=== PATIENT | female | born 1970 | race Caucasian/White ===

== ENCOUNTER 2016-12-14 10:06 | Emergency (ER) | payer OTHER ==
[2016-12-14 10:13] VITALS: BMI 22.4
[2016-12-14] MEDS ORDERED: SODIUM CHLORIDE 1,000 ML IV STA (11:36)
[2016-12-14] MEDS ORDERED: METOCLOPRAMIDE HCL INJECTION 10 MG/2 ML VIAL IVPB ONE (11:36)
[2016-12-14] MEDS ORDERED: KETOROLAC TROMETHAMINE 30 MG/1 ML VIAL IVPUSH ONE (11:36)
[2016-12-14] MEDS ORDERED: METOCLOPRAMIDE HCL INJECTION 10 MG/2 ML VIAL ONE (11:46)
[2016-12-14 12:09] LABS: URINE APPEARANCE CLEAR; URINE BILIRUBIN NEGATIVE (NEGATIVE); URINE COLOR LTYELLOW; URINE GLUCOSE (UA) 1+ (NEGATIVE); URINE KETONE NEGATIVE (NEGATIVE); URINE LEUK ESTERASE NEGATIVE (NEGATIVE); URINE NITRITE NEGATIVE (NEGATIVE); URINE PROTEIN NEGATIVE (NEGATIVE); URINE UROBILINOGEN NEGATIVE E.U./dl (0.2-1.0)
[2016-12-14 12:10] LABS: URINE BLOOD 1+ (NEGATIVE)
[2016-12-14 12:11] LABS: URINE MUCUS RARE; URINE RBC 6 /hpf (0-3); URINE WBC 1 /hpf (3-5)
[2016-12-14 12:14] LABS: BASOPHIL 0.8 % (0-2.0); EOSINOPHIL 0.6 % (0-4.5); MCH 24.6 pg (25.7-33.7); MCHC 32.5 g/dl (32.0-36.0); MEAN CELL VOLUME 75.9 fl (80-96); MEAN PLT VOLUME 8.4 fl (7.5-11.1); NEUTROPHILS 67.6 % (42.8-82.8); PLATELET COUNT 264 K/MM3 (134-434); WHITE BLOOD COUNT 7.4 K/mm3 (4.0-10.0)
[2016-12-14] MEDS ORDERED: KETOROLAC TROMETHAMINE 30 MG/1 ML VIAL ONE (12:19)
--- NOTE | 2016-12-14 12:26 | PDOC ---
History of Present Illness - General Chief Complaint: Headache Stated Complaint: HEADACHES Time Seen by Provider: 12/14/16 10:32 History Source: Patient Exam Limitations: No Limitations - History of Present Illness Initial Comments: 12/14/16 12:33 46-year-old female presents to the ED with complaints of left retro-orbital throbbing pressure that radiates to her left occipital region for the past week unrelieved with Advil gelcaps. Patient states is followed by Dr. Victoria for migraines and hemangiomas. Patient denies any visual changes, dizziness, nausea , or weakness. Patient denies drug or alcohol use and denies neck pain. Timing/Duration: reports: 1 week, waxing and waning Severity: Yes: moderate Associated Symptoms: reports: other (headache). denies: vision changes Past History - Past Medical History Allergies/Adverse Reactions: Allergies Allergy/AdvReac Type Severity Reaction Status Date / Time No Known Allergies Allergy Verified 12/14/16 10:08 Home Medications: Ambulatory Orders NK [No Known Home Medication] 12/22/15 Asthma: Yes Other medical history: hemangioma of brain, migraines - Surgical History Abdominal Surgery: Yes Cholecystectomy: Yes - Reproductive History LMP Normal: Yes Is Patient Now?: No - Psycho/Social/Smoking Cessation Hx Anxiety: No Suicidal Ideation: No Smoking History: Current every day smoker Have you smoked in the past 12 months: Yes Number of Cigarettes Smoked Daily: 12 Information on smoking cessation initiated: Yes 'Breaking Loose' booklet given: 12/14/16 Hx Alcohol Use: No Drug/Substance Use Hx: No Substance Use Type: None, Marijuana Patient Lives Alone: No Lives with/in: spouse/SO Neuro Specific PMHX - Complaint Specific PMHX Migraine: Yes Review of Systems - Review of Systems Able to Perform ROS?: Yes Constitutional: No: Symptoms Reported HEENTM: No: Symptoms Reported Respiratory: No: Symptoms reported Cardiac (ROS): No: Symptoms Reported ABD/GI: No: Symptoms Reported : No: Symptoms Reported Musculoskeletal: No: Symptoms Reported Integumentary: No: Symptoms Reported Neurological: Yes: Headache. No: Numbness, Tingling, Weakness, Dizziness *Physical Exam - Vital Signs Last Vital Signs Temp Pulse Resp BP Pulse Ox 98.2 F 72 18 137/78 100 12/14/16 10:09 12/14/16 10:09 12/14/16 10:09 12/14/16 10:09 12/14/16 10:09 - Physical Exam General Appearance: Yes: Nourished, Appropriately Dressed. No: Apparent Distress HEENT: positive: EOMI, ANGELICA, TMs Normal. negative: Pale Conjunctivae Neck: positive: Normal Thyroid, Supple. negative: Tender, Decreased range of motion Respiratory/Chest: positive: Lungs Clear, Normal Breath Sounds. negative: Respiratory Distress, Accessory Muscle Use Cardiovascular: positive: Regular Rhythm, Regular Rate. negative: Murmur Integumentary: positive: Normal Color, Warm, Moist Neurologic: positive: Normal Mood/Affect, Motor Strength 5/5 (ambulatory) ED Treatment Course - LABORATORY CBC & Chemistry Diagram: 12/14/16 11:36 12/14/16 11:36 - RADIOLOGY Radiology Studies Ordered: Category Date Time Status HEAD CT WITHOUT CONTRAST [CT] Stat CT Scan 12/14/16 11:34 Ordered - Medications Given in the ED: ED Medications Discontinued Medications Generic Name Dose Route Start Last Admin Trade Name Elioq PRN Reason Stop Dose Admin Metoclopramide HCl 10 mg 12/14/16 11:36 12/14/16 11:47 Reglan Injection - IVPB 12/14/16 11:37 10 mg ONCE ONE Administration Medical Decision Making - Medical Decision Making 12/14/16 12:35 Pt with history of migraines and hemangioma was followed by Dr. Victoria now having throbbing pressure to her left retro-orbital and left occipital region which she states is normal location of previous migraines and denies any worsening symptoms. Patient ordered for labs including head CT, urine IV fluids, Reglan and Toradol. 12/14/16 13:21 Laboratory Tests 12/14/16 12/14/16 12/14/16 11:36 11:36 11:36 WBC 7.4 Hgb 10.4 L D Hct 32.1 L RDW 16.0 H D Neutrophils % 67.6 Sodium 140 Potassium 3.9 Chloride 106 Carbon Dioxide 26 Anion Gap 8 BUN 9 Creat Clearance w eGFR > 60 Random Glucose 89 Total Bilirubin 0.3 D AST 13 L D ALT 14 D Urine Glucose (UA) 1+ H Urine Blood 1+ H Ur Leukocyte Esterase Negative Urine WBC 1 Urine HCG, Qual Negative Head CT shows no evidence of acute intracranial hemorrhage, edema midline shift , mass effect, or skull fracture. Subtle increased attenuation is seen on the right side of the luciana, body of corpus callosum and the site of the cavernous angioma on MRI of the brain seen 2012. Patient states feeling much better with no complaints presently. Patient be discharged home to follow-up with Dr. Wild migraine specialist with Dr. Victoria's group. *DC/Admit/Observation/Transfer Diagnosis at time of Disposition: Migraine Qualifiers: Migraine type: other Status migrainosus presence: with status migrainosus Intractability: intractable Qualified Code(s): G43.811 - Other migraine, intractable, with status migrainosus - Discharge Dispostion Disposition: HOME Condition at time of disposition: Improved - Referrals Referrals: Sandrine Reyes MD [Staff Physician] - - Patient Instructions Printed Discharge Instructions: DI for Migraine Additional Instructions: Please avoid triggers that exacerbate your headaches. Please follow up with referred physician. return to ED if symptoms worsen
[2016-12-14 12:39] LABS: ALBUMIN 3.8 g/dl (3.4-5.0); ANION GAP 8 (8-16); BILIRUBIN,TOTAL 0.3 mg/dL (0.2-1.0); CALCIUM 9.1 mg/dL (8.5-10.1); CO2 26 mmol/L (21-32); CREATININE 0.7 mg/dL (0.55-1.02); GLUCOSE,RANDOM 89 mg/dL (74-106); SGOT/AST 13 U/L (15-37); SGPT/ALT 14 U/L (12-78); TOT PROT 7.3 g/dl (6.4-8.2)
[2016-12-14 12:40] LABS: ALK PHOS 71 U/L (45-117)
[2016-12-14 13:17] VITALS: BP 134/87; PULSE 61; TEMP 97.5
== END 2016-12-14 13:33 | disposition home or self-care (01) ==
LOC: JER 10:06
PROC: 3E0333Z Introduction of Anti-inflammatory into Peripheral Vein, Percutaneous Approach (ICD-10-PCS; principal; 2016-12-14)
PROC: 3E033GC Introduction of Other Therapeutic Substance into Peripheral Vein, Percutaneous Approach (ICD-10-PCS; 2016-12-14)
DX: G43.811 Other migraine, intractable, with status migrainosus (principal); F17.210 Nicotine dependence, cigarettes, uncomplicated
CPT/HCPCS: 36415; 70450-TC; 80053; 81003; 81015; 84703; 85025; 96374; 96375; 99284-25

== ENCOUNTER 2017-01-31 16:25 | Emergency (ER) | payer OTHER ==
[2017-01-31] MEDS ORDERED: DIPHTH,PERTUSS(ACELL),TET 0.5 ML DISP.SYRIN IM ONE (16:34)
[2017-01-31 16:35] VITALS: BP 149/80; PULSE 88; TEMP 98.5; BMI 21.4
--- NOTE | 2017-01-31 16:37 | PDOC ---
Rapid Medical Evaluation Chief Complaint: Laceration Time Seen by Provider: 01/31/17 16:32 Medical Evaluation: Allergies Allergy/AdvReac Type Severity Reaction Status Date / Time No Known Allergies Allergy Verified 01/31/17 16:33 01/31/17 16:35 RME Note: I have performed a brief, in-person evaluation of this patient . This patient presents with CC: Laceration left hand dorsum; Right hand dominant Pertinent PE findings are: 2.6 cm laceration I have ordered: Td Shot ordered The patient will proceed to ED for further evaluation.
--- NOTE | 2017-01-31 18:28 | PDOC ---
History of Present Illness - General Chief Complaint: Laceration Stated Complaint: LACERATION Time Seen by Provider: 01/31/17 16:32 History Source: Patient Exam Limitations: No Limitations - History of Present Illness Initial Comments: CHIEF COMPLAINT: 46 y/o afebrile female with laceration to left hand. HISTORY OF PRESENT ILLNESS: The patient states she put her hand down between her bed frame to get something and cut herself on a straight edge razor. She is not UTD on tetanus. she is right handed. She has no numbness/tingling. Vital signs on arrival are within normal limits. REVIEW OF SYSTEMS: GENERAL/CONSTITUTIONAL: No fever/chills. No weakness. No weight change. MUSCULOSKELETAL: No joint or muscle swelling or pain. No neck or back pain. SKIN: +laceration to left hand. NEUROLOGIC: No headache, vertigo, loss of consciousness, or loss of sensation. PHYSICAL EXAM: GENERAL: The patient is awake, alert, and fully oriented, in no acute distress. EXTREMITIES: Normal range of motion, no edema. NEUROLOGICAL: Normal speech, normal gait. CN II-XII grossly intact. PSYCH: Normal mood, normal affect. SKIN: 2.5cm vertical laceration on dorsum of left hand, just proximal to 3rd MCP joint. Full flexion/extension of all fingers and wrist of left hand. No streaking. Very well approximately margins. Past History - Past Medical History Allergies/Adverse Reactions: Allergies Allergy/AdvReac Type Severity Reaction Status Date / Time No Known Allergies Allergy Verified 01/31/17 16:33 Home Medications: Ambulatory Orders NK [No Known Home Medication] 12/22/15 Asthma: Yes - Surgical History Abdominal Surgery: Yes Cholecystectomy: Yes - Psycho/Social/Smoking Cessation Hx Anxiety: No Suicidal Ideation: No Smoking History: Current every day smoker Have you smoked in the past 12 months: Yes Number of Cigarettes Smoked Daily: 20 Information on smoking cessation initiated: No 'Breaking Loose' booklet given: 12/14/16 Hx Alcohol Use: No Drug/Substance Use Hx: No Substance Use Type: None, Marijuana *Physical Exam - Vital Signs Last Vital Signs Temp Pulse Resp BP Pulse Ox 98.5 F 88 18 149/80 99 01/31/17 16:33 01/31/17 16:33 01/31/17 16:33 01/31/17 16:33 03/20/17 16:33 Procedures - Laceration/Wound Repair Left Dorsal Hand Wound Length: to 2.5 cm Wound Explored: clean Wound's Depth, Shape: superficial, linear Irrigated w/ Saline: Yes Betadine Prep: Yes Wound Debrided: minimal Wound Repaired With: Sutures Suture Size/Type: 4:0 Number of Sutures: 3 Sterile Dressing Applied: Yes Medical Decision Making - Medical Decision Making A/P: 46 y/o female with laceration to left hand. Will give tetanus shot and do lac repair. Pt tolerated lac repair well after refusing lidocaine. Instructed her to keep wound clean and dry and return in 7-10 days for suture removal. The patient verbalizes understanding of all instructions, has no further questions and is awaiting discharge. *DC/Admit/Observation/Transfer Diagnosis at time of Disposition: Laceration of hand Qualifiers: Encounter type: initial encounter Foreign body presence: without foreign body Laterality: left Qualified Code(s): S61.412A - Laceration without foreign body of left hand, initial encounter - Discharge Dispostion Disposition: HOME Condition at time of disposition: Improved - Referrals Referrals: Concepción Baumann [Primary Care Provider] - - Patient Instructions Printed Discharge Instructions: DI for Laceration Repair Additional Instructions: Discharge Instructions: -Keep wound clean and dry -Return to the ER in 7-10 days for suture removal - Post Discharge Activity Work/School Note: Back to Work
== END 2017-01-31 18:44 | disposition home or self-care (01) ==
LOC: JERFT 16:25
PROC: 3E0234Z Introduction of Serum, Toxoid and Vaccine into Muscle, Percutaneous Approach (ICD-10-PCS; principal; 2017-01-31)
PROC: 0HQGXZZ Repair Left Hand Skin, External Approach (ICD-10-PCS; 2017-01-31)
DX: S61.412A Laceration without foreign body of left hand, initial encounter (principal); W26.8XXA Contact with other sharp object(s), not elsewhere classified, initial encounter; Y93.89 Activity, other specified; Y92.013 Bedroom of single-family (private) house as the place of occurrence of the external cause
CPT/HCPCS: 12001-25; 90471; 90715; 99281-25

== ENCOUNTER 2017-02-07 17:01 | Emergency (ER) | payer OTHER ==
[2017-02-07 17:13] VITALS: BP 119/79; PULSE 63; TEMP 98.3; BMI 21.4
--- NOTE | 2017-02-07 18:12 | PDOC ---
Suture Removal/Wound Check HPI - History of Present Illness Chief Complaint: Suture/Staple Removal (other) Stated Complaint: STITCHES REMOVAL Time Seen by Provider: 02/07/17 17:40 History Source: Yes: Patient Exam Limitations: Yes: No Limitations Treated at: [facility] ED - Previous ED Treatment Type of procedure performed on last visit: Yes: Laceration Repair Tetanus Immunization: Yes: Up to Date Antibiotics Prescribed: No Past History - Travel Traveled outside of the country in the last 30 days: No Close contact w/someone who was outside of country & ill: No - Past Medical History Allergies/Adverse Reactions: Allergies No Known Allergies Allergy (Verified 02/07/17 17:08) Home Medications: Ambulatory Orders NK [No Known Home Medication] 12/22/15 General: Yes: no pertinent history Surgical History: Yes: No Surgical History - Immunization History Tetanus Status: Unknown - Social History Smoking Status: Current every day smoker Number of Ciarettes Per Day: 20 Suture Removal/Wound Check PE - Physical Exam Laceration/Wound Check Symptoms: reports: None Current Severity Level: None Maximum Severity Level: None Pain Localization: None *Review of Systems - Review of Systems Able to Perform ROS?: Yes Constitutional: Yes: See HPI. No: Symptoms Reported, Fever, Malaise HEENTM: No: Symptoms Reported Integumentary: Yes: Symptoms Reported, See HPI, Other (3 sutures to dorsum of left hand at MCP third digit, not well approximated at joint ) All Other Systems: Reviewed and Negative Medical Decision Making - Medical Decision Making 02/07/17 18:10 Wound not well approximated thus far, recommend additional 5-7 days for suture repair and wound healing. Patient understands, will allow to start to dry, and provided with splint to avoid excessive movement at joint to allow better wound healing. *DC/Admit/Observation/Transfer Diagnosis at time of Disposition: Encounter for wound re-check - Discharge Dispostion Disposition: HOME Condition at time of disposition: Stable Admit: No - Patient Instructions Printed Discharge Instructions: Laceration Repair
== END 2017-02-07 18:14 | disposition home or self-care (01) ==
LOC: JER 17:01 → JERFT 17:01
DX: Z09 Encounter for follow-up examination after completed treatment for conditions other than malignant neoplasm (principal)
CPT/HCPCS: 99281-25

== ENCOUNTER 2017-02-11 16:46 | Emergency (ER) | payer OTHER ==
[2017-02-11 17:09] VITALS: BP 134/81; PULSE 77; TEMP 98.6; BMI 21.4
--- NOTE | 2017-02-11 17:33 | PDOC ---
Suture Removal/Wound Check HPI - History of Present Illness Chief Complaint: Suture/Staple Removal(Here) Stated Complaint: STITCHES REMOVAL Time Seen by Provider: 02/11/17 17:32 History Source: Yes: Patient Exam Limitations: Yes: No Limitations Date of Last ED visit: 02/07/17 - Onset of Previous Treatment Date of Occurence: 01/31/17 Past History - Past Medical History Allergies/Adverse Reactions: Allergies No Known Allergies Allergy (Verified 02/11/17 17:06) Home Medications: Ambulatory Orders NK [No Known Home Medication] 12/22/15 Surgical History: Yes: No Surgical History - Immunization History Tetanus Status: Unknown - Social History Smoking Status: Current every day smoker Number of Ciarettes Per Day: 20 Medical Decision Making - Medical Decision Making A/P: 46 y/o female here for suture removal. Margins well approximated. 3 sutures removed. 1 steri strip applied. Pt encouraged to continue to wear splint until completely healed. The patient verbalizes understanding of all instructions, has no further questions and is awaiting discharge. *DC/Admit/Observation/Transfer Diagnosis at time of Disposition: Visit for suture removal - Discharge Dispostion Disposition: HOME Condition at time of disposition: Good - Referrals Referrals: Concepción Baumann [Primary Care Provider] - - Patient Instructions Printed Discharge Instructions: DI for Suture Removal
== END 2017-02-11 17:43 | disposition home or self-care (01) ==
LOC: JERFT 16:46
DX: Z48.02 Encounter for removal of sutures (principal)
CPT/HCPCS: 99281-25

== ENCOUNTER 2017-07-21 14:26 | Emergency (ER) | payer OTHER ==
[2017-07-21 14:32] VITALS: BP 104/65; PULSE 77; TEMP 98.8; BMI 22.3
[2017-07-21] MEDS ORDERED: KETOROLAC TROMETHAMINE 60 MG/2 ML VIAL IM ONE (14:59)
[2017-07-21] MEDS ORDERED: diazePAM 5 MG TABLET PO ONE (14:59)
[2017-07-21] MEDS ORDERED: diazePAM 5 MG TABLET ONE (15:02)
[2017-07-21] MEDS ORDERED: KETOROLAC TROMETHAMINE 60 MG/2 ML VIAL ONE (15:02)
--- NOTE | 2017-07-21 15:48 | PDOC ---
History of Present Illness - General Chief Complaint: Pain, Acute Stated Complaint: NECK PAIN Time Seen by Provider: 07/21/17 14:38 History Source: Patient Exam Limitations: No Limitations - History of Present Illness Initial Comments: 07/21/17 15:48 Patient is a 47 y/o female with asthma presents emergency department for evaluation of left lateral neck pain. Patient aching up with the pain, denies any trauma. There is no neurosensory deficits. Patient reports that she uses pillow that is very uncomfortable, has been taking Advil with minimal resolve. Pain returns after medication wears off. Denies any headache, no visual disturbance, no other concern. Past Medical History: Asthma. Allergies: No known allergies Medications: None Family History: Non-contributory Review of Systems GENERAL/CONSTITUTIONAL: No fever or chills. No weakness. No weight change. HEAD, EYES, EARS, NOSE AND THROAT: No change in vision. No ear pain or discharge. No sore throat. CARDIOVASCULAR: No chest pain or shortness of breath. RESPIRATORY: No cough, wheezing, or hemoptysis. GASTROINTESTINAL: No nausea, vomiting, diarrhea or constipation. No rectal bleeding. GENITOURINARY: No dysuria, frequency, or change in urination. MUSCULOSKELETAL: No joint or muscle swelling or pain. No neck or back pain. SKIN : No rash or easy bruising. NEUROLOGIC: No headache, vertigo, loss of consciousness, or loss of sensation. HEMATOLOGIC/LYMPHATIC: No anemia, easy bleeding, or history of blood clots. ALLERGIC/IMMUNOLOGIC: No hives or skin allergy. No latex allergy. Physical Exam: GENERAL: The patient is awake, alert, and fully oriented, in no acute distress. EYES: Pupils equal, round and reactive to light, extraocular movements intact, sclera anicteric, conjunctiva clear. ENT: Ears normal, nares patent, oropharynx clear without exudates. Moist mucous membranes. No uvula deviation NECK: Left lateral neck spasm., supple without lymphadenopathy, JVD, or masses. LUNGS: Breath sounds equal, clear to auscultation bilaterally. No wheezes, and no crackles. HEART: Regular rate and rhythm, normal S1 and S2 without murmur, rub or gallop. ABDOMEN: Soft, nontender, normoactive bowel sounds. No guarding, no rebound. No masses. No bruising or abrasions MUSCULOSKELETAL: Normal range of motion, no edema. No clubbing or cyanosis. No cords, erythema, or tenderness. No CVA Tenderness with fist palpation. NEUROLOGICAL: Cranial nerves II through XII grossly intact. Normal speech, normal gait. SKIN: Warm, Dry, normal turgor, no rashes or lesions noted. 07/21/17 16:13 Past History - Past Medical History Allergies/Adverse Reactions: Allergies Allergy/AdvReac Type Severity Reaction Status Date / Time No Known Allergies Allergy Verified 07/21/17 14:30 Home Medications: Ambulatory Orders Diazepam [Valium] 5 mg PO Q6H #16 tablet MDD 4 07/21/17 Ibuprofen [Motrin -] 600 mg PO QID #28 tablet 07/21/17 Methylprednisolone [Medrol Dose Darrius] 4 mg PO ASDIR #21 tablet 07/21/17 Asthma: Yes Psychiatric Problems: Yes (DEPRESSION) - Surgical History Abdominal Surgery: Yes Cholecystectomy: Yes - Psycho/Social/Smoking Cessation Hx Anxiety: No Suicidal Ideation: No Smoking History: Current every day smoker Have you smoked in the past 12 months: Yes Number of Cigarettes Smoked Daily: 20 Information on smoking cessation initiated: No 'Breaking Loose' booklet given: 12/14/16 Hx Alcohol Use: No Drug/Substance Use Hx: No Substance Use Type: None, Marijuana *Physical Exam - Vital Signs Last Vital Signs Temp Pulse Resp BP Pulse Ox 98.8 F 77 19 104/65 99 07/21/17 14:30 07/21/17 14:30 07/21/17 14:30 07/21/17 14:30 07/21/17 14:30 ED Treatment Course - RADIOLOGY Radiology Studies Ordered: Category Date Time Status SPINE-CERVICAL [RAD] Stat Radiology 07/21/17 14:58 Completed - Medications Given in the ED: ED Medications Discontinued Medications Generic Name Dose Route Start Last Admin Trade Name Freq PRN Reason Stop Dose Admin Diazepam 5 mg 07/21/17 14:59 07/21/17 15:08 Valium - PO 07/21/17 15:00 5 mg ONCE ONE Administration Ketorolac Tromethamine 60 mg 07/21/17 14:59 07/21/17 15:07 Toradol Injection - IM 07/21/17 15:00 60 mg ONCE ONE Administration Medical Decision Making - Medical Decision Making 07/21/17 16:27 A/P : Patient with left lateral neck pain for one month. She states she woke up with the pain, denies any neurosensory deficits. Thinks that this may be getting the pain from an uncomfortable pillow. 1. Xray c spine, because of length pain has persisted. X-ray with cervical spondyosis. Or don't Valium given with good result DC patient home on Medrol Dosepak after completion of Medrol, Motrin for pain, Valium, follow-up with orthopedics if pain persists in one week *DC/Admit/Observation/Transfer Diagnosis at time of Disposition: Torticollis - Discharge Dispostion Disposition: HOME Condition at time of disposition: Good Admit: No - Prescriptions Prescriptions: Methylprednisolone [Medrol Dose Darrius] 4 mg PO ASDIR #21 tablet Ibuprofen [Motrin -] 600 mg PO QID #28 tablet Diazepam [Valium] 5 mg PO Q6H #16 tablet MDD 4 - Referrals Referrals: Killian Anguiano MD [Staff Physician] - - Patient Instructions Printed Discharge Instructions: DI for Torticollis
== END 2017-07-21 16:18 | disposition home or self-care (01) ==
LOC: JERFT 14:26
PROC: 3E0233Z Introduction of Anti-inflammatory into Muscle, Percutaneous Approach (ICD-10-PCS; principal; 2017-07-21)
DX: M43.6 Torticollis (principal); J45.909 Unspecified asthma, uncomplicated; F32.9 Major depressive disorder, single episode, unspecified; F17.210 Nicotine dependence, cigarettes, uncomplicated
CPT/HCPCS: 72050-TC; 99281-25

== ENCOUNTER 2017-12-21 17:51 | Emergency (ER) | payer OTHER ==
[2017-12-21 17:57] VITALS: BP 119/87; PULSE 98; TEMP 98.5; BMI 21.8
--- NOTE | 2017-12-21 17:57 | PDOC ---
Rapid Medical Evaluation Time Seen by Provider: 12/21/17 17:53 Medical Evaluation: Allergies Allergy/AdvReac Type Severity Reaction Status Date / Time No Known Allergies Allergy Verified 07/21/17 14:30 12/21/17 17:53 I have performed a brief in-person evaluation of this patient. The patient presents with a chief complaint of: R shoulder pain x "past few days ", 05/23, took advil at 4 pm, also "collar bone is sticking out and higher than left side." Pertinent physical exam findings: tenderness to R clavicle I have ordered the following: shoulder/clavicle x-ray, upreg The patient will proceed to the ED for further evaluation. Discharge Disposition - Diagnosis Shoulder pain - Referrals - Patient Instructions - Post Discharge Activity
[2017-12-21] MEDS ORDERED: KETOROLAC TROMETHAMINE 60 MG/2 ML VIAL IM ONE (20:42)
--- NOTE | 2017-12-21 20:42 | PDOC ---
History of Present Illness - General Chief Complaint: Pain, Acute Stated Complaint: SHOULDER PAIN Time Seen by Provider: 12/21/17 17:53 History Source: Patient Exam Limitations: No Limitations - History of Present Illness Initial Comments: 12/21/17 20:48 c/o chronic pain to right shulder x 3 months that is worsening and spreading into upper right arm. Denies trauma, exercise change, activity or injury,. Has not used treatments other than a Percocet x 1 for pain relief. Has not discussed with PMD . Works at [employer] with frequent heavy lifting and is right-hand dominant Occurred: reports: yesterday Severity: reports: mild, moderate Pain Location: reports: upper extremity (right clavicle and shoulder ) Modifying Factors: improves with: pain medication Past History - Travel Traveled outside of the country in the last 30 days: No Close contact w/someone who was outside of country & ill: No - Past Medical History Allergies/Adverse Reactions: Allergies Allergy/AdvReac Type Severity Reaction Status Date / Time No Known Allergies Allergy Verified 12/21/17 17:57 Home Medications: Ambulatory Orders Cyclobenzaprine HCl 10 mg PO Q8H PRN #14 tablet 12/21/17 Naproxen [Naprosyn -] 500 mg PO BID #20 tablet 12/21/17 Asthma: Yes COPD: No Psychiatric Problems: Yes (DEPRESSION) - Surgical History Abdominal Surgery: Yes Cholecystectomy: Yes - Suicide/Smoking/Psychosocial Hx Smoking History: Current every day smoker Have you smoked in the past 12 months: Yes Number of Cigarettes Smoked Daily: 20 Information on smoking cessation initiated: No 'Breaking Loose' booklet given: 12/14/16 Hx Alcohol Use: No Drug/Substance Use Hx: No Substance Use Type: None, Marijuana Trauma Specific PMHX - Complaint Specific PMHX Back Injury: No Neck Injury: No Review of Systems - Review of Systems Able to Perform ROS?: Yes Is the patient limited Bahraini proficient: Yes Constitutional: Yes: Symptoms Reported, See HPI. No: Fever, Malaise HEENTM: No: Symptoms Reported Respiratory: Yes: See HPI. No: Symptoms reported Musculoskeletal: Yes: Symptoms Reported, See HPI, Joint Pain, Joint Swelling ( right shoudler ) Integumentary: No: Symptoms Reported Neurological: Yes: See HPI. No: Symptoms reported All Other Systems: Reviewed and Negative *Physical Exam - Vital Signs Last Vital Signs Temp Pulse Resp BP Pulse Ox 98.5 F 98 H 18 119/87 98 12/21/17 17:54 12/21/17 17:54 12/21/17 17:54 12/21/17 17:54 12/21/17 17:54 - Physical Exam General Appearance: Yes: Nourished, Appropriately Dressed, Apparent Distress HEENT: positive: ANGELICA, Normal ENT Inspection, TMs Normal, Pharynx Normal Neck: positive: Supple. negative: Tender, Lymphadenopathy (R), Lymphadenopathy (L) Respiratory/Chest: positive: Lungs Clear, Normal Breath Sounds Musculoskeletal: positive: Normal Inspection, CVA Tenderness (R), Decreased Range of Motion (unable to abduct past 30 to right shoulder with reproduce tenderness with palpation along the lateral clavicle deltoid and upper humerus. Patient has strong flexion and extension to hand but flexion with bicep reproduces pain along upper aspect of arm. No crepitus or step-offs to clavicle or scapula, no neck tenderness, no spasm palpated but has very tense musculature to the upper trapezius and shoulder girdle.). negative: Vertebral Tenderness Extremity: positive: Normal Capillary Refill. negative: Normal Range of Motion , Tender Integumentary: positive: Normal Color Neurologic: positive: sales account representative II-XII NML intact, Fully Oriented, Alert, Normal Mood/ Affect, Normal Response, Motor Strength 5/5 ED Treatment Course - ADDITIONAL ORDERS Additional order review: Laboratory Results 12/21/17 18:43 Urine HCG, Qual Negative Progress Note - Progress Note Progress Note: Tendinitis right shoulder, will treat with NSAIDs and try muscle spasm relief. Encouraged to use ice packs, rest, and follow up with Orth O for further evaluation this week *DC/Admit/Observation/Transfer Diagnosis at time of Disposition: Shoulder pain Qualifiers: Chronicity: acute Laterality: left Qualified Code(s): M25.512 - Pain in left shoulder - Discharge Dispostion Disposition: HOME Condition at time of disposition: Stable Admit: No - Referrals Referrals: Killian Anguiano MD [Staff Physician] - - Patient Instructions Printed Discharge Instructions: DI for Shoulder Tendinopathy Additional Instructions: Rest, no heavy lifting or exercise until pain is resolved Hot soaks to neck and low back as often as possible/hot showers or Jacuzzis No massage or therapy until spasm is gone Continue Naprosyn 500 mg every 8 hours for the next 3 days then as needed for pain and swelling Cyclobenzaprine 1-10mg every 8 hours as needed for spasm If not significant improvement within 24 hours with medication and rest regime, followup with private physician for change in medications and /or therapy. - Post Discharge Activity Forms/Work/School Notes: Back to Work
[2017-12-21] MEDS ORDERED: KETOROLAC TROMETHAMINE 60 MG/2 ML VIAL ONE ×2 (20:44→20:45)
== END 2017-12-21 20:54 | disposition home or self-care (01) ==
LOC: JERFT 17:51
PROC: 3E0233Z Introduction of Anti-inflammatory into Muscle, Percutaneous Approach (ICD-10-PCS; principal; 2017-12-21)
DX: M75.81 Other shoulder lesions, right shoulder (principal)
CPT/HCPCS: 73000-TC-RT-FY; 73030-TC-RT-FY; 84703; 99281-25

== ENCOUNTER 2018-01-09 15:20 | Emergency (ER) | payer OTHER ==
[2018-01-09 15:28] VITALS: TEMP 98.3; BMI 21.4
--- NOTE | 2018-01-09 15:28 | PDOC ---
Rapid Medical Evaluation Time Seen by Provider: 01/09/18 15:25 Medical Evaluation: Allergies Allergy/AdvReac Type Severity Reaction Status Date / Time No Known Allergies Allergy Verified 12/21/17 17:57 01/09/18 15:25 I have performed a brief in person evaluation of this patient. The patient presents with chief complaint of : I have performed a brief in person evaluation of this patient. The patient presents with chief complaint of : 3 days right sided low back to flank pain, reproducable with movement and ttp Pertinent PE findings: guarding right flank I have ordered the following: UA, urine culture, urine preg
--- NOTE | 2018-01-09 16:30 | PDOC ---
History of Present Illness <Liana Chang - Last Filed: 01/09/18 16:36> - General History Source: Patient Exam Limitations: No Limitations - History of Present Illness Initial Comments: 01/09/18 16:34 The patient is a 47 year old female with a significant PMH of bipolar, anemia, and asthma who presents to the emergency department with right flank pain radiating to the right upper quadrant abdomen for the past three days. The patient states the right flank pain is worsened with changes in movement and deep breathing. The patient is also complaining of associated cough, lightheadedness, nausea, and frequent urination. The patient denies dysuria, urgency, hematuria, fever, vomiting, and chills. The patient denies any recent falls. The patient denies any history of kidney stones. Of note, the patient states she is short of breath at baseline as she is a smoker. The patient denies chest pain, headache and dizziness. Denies fever, chills, nausea, vomit, diarrhea and constipation. Denies dysuria, urgency and hematuria. Allergies: NKA Past surgical history: None reported. Social history: Smoker. No reported alcohol or drug use. <Gricelda Arias - Last Filed: 01/09/18 16:39> <Rohan Steinberg - Last Filed: 01/10/18 04:14> - General Chief Complaint: Back Pain Stated Complaint: PAIN/ BACK, ABD Time Seen by Provider: 01/09/18 15:25 Past History - Past Medical History Asthma: Yes COPD: No Psychiatric Problems: Yes (DEPRESSION) - Surgical History Abdominal Surgery: Yes Cholecystectomy: Yes - Suicide/Smoking/Psychosocial Hx Smoking History: Current every day smoker Have you smoked in the past 12 months: Yes Number of Cigarettes Smoked Daily: 20 Information on smoking cessation initiated: Yes 'Breaking Loose' booklet given: 01/09/18 Hx Alcohol Use: No Drug/Substance Use Hx: No Substance Use Type: None, Marijuana <Liana Chang - Last Filed: 01/09/18 16:36> <Gricelda Arias - Last Filed: 01/09/18 16:39> <Rohan Steinberg - Last Filed: 01/10/18 04:14> - Past Medical History Allergies/Adverse Reactions: Allergies Allergy/AdvReac Type Severity Reaction Status Date / Time No Known Allergies Allergy Verified 01/09/18 15:25 Home Medications: Ambulatory Orders NK [No Known Home Medication] 01/09/18 Review of Systems - Review of Systems Able to Perform ROS?: Yes Comments:: 01/09/18 16:35 GENERAL/CONSTITUTIONAL: No fever or chills. No weakness. HEAD, EYES, EARS, NOSE AND THROAT: No change in vision. No ear pain or discharge. No sore throat. CARDIOVASCULAR: No chest pain or shortness of breath. RESPIRATORY: No cough, wheezing, or hemoptysis. GASTROINTESTINAL: (+) Nausea. No vomiting, diarrhea or constipation. GENITOURINARY: (+) Right flank pain. (+) Frequency. No dysuria or change in urination. MUSCULOSKELETAL: No joint or muscle swelling or pain. No neck or back pain. SKIN: No rash NEUROLOGIC: No headache, vertigo, loss of consciousness, or change in strength/ sensation. ENDOCRINE: No increased thirst. No abnormal weight change. HEMATOLOGIC/LYMPHATIC: No anemia, easy bleeding, or history of blood clots. ALLERGIC/IMMUNOLOGIC: No hives or skin allergy. <Gricelda Arias - Last Filed: 01/09/18 16:39> *Physical Exam - Vital Signs Last Vital Signs Temp Pulse Resp BP Pulse Ox 98.3 F 99 H 18 121/76 100 01/09/18 15:26 01/09/18 15:26 01/09/18 15:26 01/09/18 15:26 01/09/18 15:26 <Liana Chang - Last Filed: 01/09/18 16:36> - Vital Signs Last Vital Signs Temp Pulse Resp BP Pulse Ox 98.3 F 99 H 18 121/76 100 01/09/18 15:26 01/09/18 15:26 01/09/18 15:26 01/09/18 15:26 01/09/18 15:26 - Physical Exam Comments: 01/09/18 16:38 GENERAL: Awake, alert, and fully oriented, in no acute distress HEAD: No signs of trauma EYES: PERRLA, EOMI, sclera anicteric, conjunctiva clear ENT: Auricles normal inspection, hearing grossly normal, nares patent, oropharynx clear without exudates. Moist mucosa NECK: Normal ROM, supple, no lymphadenopathy, JVD, or masses LUNGS: Breath sounds equal, clear to auscultation bilaterally. No wheezes, and no crackles HEART: Regular rate and rhythm, normal S1 and S2, no murmurs, rubs or gallops ABDOMEN: (+) RUQ tender to palpation. Soft, normoactive bowel sounds. No guarding, no rebound. No masses BACK: (+) CVA tenderness. EXTREMITIES: Normal range of motion, no edema. No clubbing or cyanosis. No cords, erythema, or tenderness NEUROLOGICAL: Cranial nerves II through XII grossly intact. Normal speech, normal gait SKIN: Warm, Dry, normal turgor, no rashes or lesions noted. <Gricelda Arias - Last Filed: 01/09/18 16:39> - Vital Signs Last Vital Signs Temp Pulse Resp BP Pulse Ox 98.3 F 74 20 120/72 100 01/09/18 15:26 01/09/18 18:59 01/09/18 18:59 01/09/18 18:59 01/09/18 18:59 <Rohan Steinberg - Last Filed: 01/10/18 04:14> ED Treatment Course - LABORATORY CBC & Chemistry Diagram: 01/09/18 16:25 01/09/18 16:25 - RADIOLOGY Radiology Studies Ordered: Category Date Time Status ABDOMEN & PELVIS CT W/O CONTR [CT] Stat CT Scan 01/09/18 16:25 Ordered <Liana Chang - Last Filed: 01/09/18 16:36> - LABORATORY CBC & Chemistry Diagram: 01/09/18 16:25 01/09/18 16:25 <Gricelda Arias - Last Filed: 01/09/18 16:39> - LABORATORY CBC & Chemistry Diagram: 01/09/18 16:25 01/09/18 16:25 - ADDITIONAL ORDERS Additional order review: Laboratory Results 01/09/18 01/09/18 16:25 15:44 Sodium 140 Potassium 4.0 Chloride 107 Carbon Dioxide 27 Anion Gap 6 L BUN 13 Creatinine 0.7 Creat Clearance w eGFR > 60 Random Glucose 89 Calcium 8.4 L Total Bilirubin 0.2 D AST 13 L ALT 14 Alkaline Phosphatase 79 Total Protein 7.1 Albumin 3.6 Urine Color Ltyellow Urine Appearance Clear Urine pH 7.0 D Ur Specific [place] 1.015 Urine Protein Negative Urine Glucose (UA) Negative Urine Ketones Negative Urine Blood 2+ H Urine Nitrite Negative Urine Bilirubin Negative Urine Urobilinogen 2.0 H Ur Leukocyte Esterase Negative Urine WBC (Auto) 1 Urine RBC (Auto) <1 Ur Epithelial Cells Rare Urine Mucus Rare Urine HCG, Qual Negative 01/09/18 16:25 RBC 4.17 MCV 68.0 L MCHC 30.9 L RDW 17.4 H MPV 8.0 Neutrophils % 64.3 Lymphocytes % 25.8 Monocytes % 8.0 Eosinophils % 1.3 D Basophils % 0.6 - Medications Given in the ED: ED Medications Discontinued Medications Generic Name Dose Route Start Last Admin Trade Name Freq PRN Reason Stop Dose Admin Ketorolac Tromethamine 30 mg 01/09/18 16:38 01/09/18 16:49 Toradol Injection - IVPUSH 01/09/18 16:39 30 mg ONCE ONE Administration Morphine Sulfate 4 mg 01/09/18 19:19 01/09/18 19:22 Morphine Injection - IVPUSH 01/09/18 19:20 4 mg ONCE ONE Administration <Rohan Steinberg - Last Filed: 01/10/18 04:14> Medical Decision Making - Medical Decision Making 01/09/18 16:36 Pt presents to the ED complaining of a 3 day history of R flank pain. Denies vomiting, fever or dysuria. PAtient has severe CVA tenderness and RUQ tenderness without guarding or rebound. Concern for renal stone, bilary disease , less likely pyelonephritis. Will ciheck labs and UA and check CT abdomen pelvis. Will reassess. <Liana Chang - Last Filed: 01/09/18 16:36> *DC/Admit/Observation/Transfer <Liana Chang - Last Filed: 01/09/18 16:36> - Attestations Scribe Attestion: 01/09/18 16:38 Documentation prepared by Gricelda Arias, acting as medical fee clerk for Liana Chang MD. <Gricelda Arias - Last Filed: 01/09/18 16:39> <Rohan Steinberg - Last Filed: 01/10/18 04:14> Diagnosis at time of Disposition: Back pain - Discharge Dispostion Disposition: HOME - Referrals Referrals: Arash Ness MD [Staff Physician] - - Patient Instructions Printed Discharge Instructions: DI for Back Spasm Additional Instructions: Follow-up and the clinic in 1-2 days. The phone number is [phone]. Warm compresses 20 minutes on 20 minutes off for further management and treatment of back discomfort. Take [id number] Tylenol as directed on package and. Return to the emergency department for any severe worsening symptoms or for any concerns. - Post Discharge Activity Forms/Work/School Notes: Back to Work
[2018-01-09] MEDS ORDERED: KETOROLAC TROMETHAMINE 30 MG/1 ML VIAL IVPUSH ONE (16:38)
[2018-01-09 16:41] LABS: BASO % 0.6 % (0-2.0); EOS % 1.3 % (0-4.5); HEMATOCRIT 28.4 % (32.4-45.2); HEMOGLOBIN 8.8 GM/dL (10.7-15.3); LYMPH % 25.8 % (8-40); MCHC 30.9 g/dl (32.0-36.0); NEUT % 64.3 % (42.8-82.8); PLATELET COUNT 361 K/MM3 (134-434); RBC 4.17 M/mm3 (3.60-5.2); RDW 17.4 % (11.6-15.6); WHITE BLOOD COUNT 7.8 K/mm3 (4.0-10.0)
[2018-01-09 16:47] LABS: HCG,QUALITATIVE URINE NEGATIVE; URINE APPEARANCE CLEAR; URINE BILIRUBIN NEGATIVE (NEGATIVE); URINE BLOOD 2+ (NEGATIVE); URINE COLOR LTYELLOW; URINE GLUCOSE (UA) NEGATIVE (NEGATIVE); URINE KETONE NEGATIVE (NEGATIVE); URINE LEUK ESTERASE NEGATIVE (NEGATIVE); URINE NITRITE NEGATIVE (NEGATIVE); URINE PROTEIN NEGATIVE (NEGATIVE)
[2018-01-09 16:49] LABS: ADD RBC MORPHOLOGY YES
[2018-01-09] MEDS ORDERED: KETOROLAC TROMETHAMINE 30 MG/1 ML VIAL ONE (16:50)
[2018-01-09 16:58] LABS: EPI CELLS RARE /HPF (FEW); URINE MUCUS RARE
[2018-01-09 17:12] LABS: ALBUMIN 3.6 g/dl (3.4-5.0); ANION GAP 6 (8-16); BILIRUBIN,TOTAL 0.2 mg/dL (0.2-1.0); BLOOD UREA NITROGEN 13 mg/dL (7-18); CALCIUM 8.4 mg/dL (8.5-10.1); CHLORIDE 107 mmol/L (98-107); CO2 27 mmol/L (21-32); CREATININE 0.7 mg/dL (0.55-1.02); GLUCOSE,RANDOM 89 mg/dL (74-106); SGOT/AST 13 U/L (15-37); SGPT/ALT 14 U/L (12-78); SODIUM 140 mmol/L (136-145); TOT PROT 7.1 g/dl (6.4-8.2)
[2018-01-09 17:13] LABS: ALK PHOS 79 U/L (45-117)
[2018-01-09 19:00] VITALS: BP 120/72; PULSE 74
[2018-01-09] MEDS ORDERED: morphine CARPU-JECT 4 MG/1 ML DISP.SYRIN IVPUSH ONE (19:19)
[2018-01-09] MEDS ORDERED: MORPHINE SULFATE 10 MG/1 ML *VIAL ONE (19:25)
--- NOTE | 2018-01-09 20:20 | PDOC ---
*Physical Exam - Vital Signs Last Vital Signs Temp Pulse Resp BP Pulse Ox 98.3 F 74 20 120/72 100 01/09/18 15:26 01/09/18 18:59 01/09/18 18:59 01/09/18 18:59 01/09/18 18:59 - Physical Exam General Appearance: Yes: Appropriately Dressed ED Treatment Course - LABORATORY CBC & Chemistry Diagram: 01/09/18 16:25 01/09/18 16:25 - ADDITIONAL ORDERS Additional order review: Laboratory Results 01/09/18 01/09/18 16:25 15:44 Sodium 140 Potassium 4.0 Chloride 107 Carbon Dioxide 27 Anion Gap 6 L BUN 13 Creatinine 0.7 Creat Clearance w eGFR > 60 Random Glucose 89 Calcium 8.4 L Total Bilirubin 0.2 D AST 13 L ALT 14 Alkaline Phosphatase 79 Total Protein 7.1 Albumin 3.6 Urine Color Ltyellow Urine Appearance Clear Urine pH 7.0 D Ur Specific [place] 1.015 Urine Protein Negative Urine Glucose (UA) Negative Urine Ketones Negative Urine Blood 2+ H Urine Nitrite Negative Urine Bilirubin Negative Urine Urobilinogen 2.0 H Ur Leukocyte Esterase Negative Urine WBC (Auto) 1 Urine RBC (Auto) <1 Ur Epithelial Cells Rare Urine Mucus Rare Urine HCG, Qual Negative 01/09/18 16:25 RBC 4.17 MCV 68.0 L MCHC 30.9 L RDW 17.4 H MPV 8.0 Neutrophils % 64.3 Lymphocytes % 25.8 Monocytes % 8.0 Eosinophils % 1.3 D Basophils % 0.6 - Medications Given in the ED: ED Medications Discontinued Medications Generic Name Dose Route Start Last Admin Trade Name Fabby PRN Reason Stop Dose Admin Ketorolac Tromethamine 30 mg 01/09/18 16:38 01/09/18 16:49 Toradol Injection - IVPUSH 01/09/18 16:39 30 mg ONCE ONE Administration Morphine Sulfate 4 mg 01/09/18 19:19 01/09/18 19:22 Morphine Injection - IVPUSH 01/09/18 19:20 4 mg ONCE ONE Administration Medical Decision Making - Medical Decision Making 01/09/18 20:17 \ Well-appearing no apparent distress pain has improved CT with no acute findings urinalysis with no evidence of infection. Patient with history of anemia hemoglobin is slightly low 8.8 this was discussed at length with patient. She has been resistant to take iron supplementation secondary to constipation and bowel transit issues She will return home use warm compresses and Tylenol for treatment of her back discomfort. She'll return to the emergency department for any severe worsening symptoms any fever vomiting or for any concerns She will follow-up this week in our resident clinic Findings, the need for follow-up and strict return instructions discussed with patient. *DC/Admit/Observation/Transfer Diagnosis at time of Disposition: Back pain Qualifiers: Back pain location: thoracic back pain Chronicity: unspecified Back pain laterality: right Qualified Code(s): M54.6 - Pain in thoracic spine - Discharge Dispostion Admit: No - Referrals Referrals: Arash Ness MD [Staff Physician] - - Patient Instructions Printed Discharge Instructions: DI for Back Spasm Additional Instructions: Follow-up and the clinic in 1-2 days. The phone number is [phone]. Warm compresses 20 minutes on 20 minutes off for further management and treatment of back discomfort. Take [id number] Tylenol as directed on package and. Return to the emergency department for any severe worsening symptoms or for any concerns. - Post Discharge Activity Forms/Work/School Notes: Back to Work
[2018-01-09 21:23] LABS: ANISOCYTOSIS 1+; MACROCYTOSIS 1+
[2018-01-09 21:24] LABS: PLATELET ESTIMATE ADEQUATE
== END 2018-01-09 20:39 | disposition home or self-care (01) ==
LOC: JER 15:20
PROC: 3E033NZ Introduction of Analgesics, Hypnotics, Sedatives into Peripheral Vein, Percutaneous Approach (ICD-10-PCS; principal; 2018-01-09)
PROC: 3E0333Z Introduction of Anti-inflammatory into Peripheral Vein, Percutaneous Approach (ICD-10-PCS; 2018-01-09)
DX: R10.31 Right lower quadrant pain (principal); F31.9 Bipolar disorder, unspecified; J45.909 Unspecified asthma, uncomplicated; D64.9 Anemia, unspecified
CPT/HCPCS: 36415; 74176-TC; 80053; 81003; 81015; 84703; 85025; 87086; 96374; 96375; 99283-25

== ENCOUNTER 2019-03-12 08:31 | Emergency (ER) | payer OTHER ==
[2019-03-12 08:37] VITALS: BP 126/87; PULSE 78; TEMP 98.1; BMI 24.0
[2019-03-12] MEDS ORDERED: ALBUTEROL SO4 2.5/IPRATROPIUM 0.5 INH SOL 3 ML VIAL.NEB. NEB ONE ×2 (08:55→10:21)
[2019-03-12] MEDS ORDERED: IBUPROFEN 600 MG TABLET (FP) PO ONE ×2 (08:56→10:22)
--- NOTE | 2019-03-12 09:32 | PDOC ---
History of Present Illness - General Chief Complaint: Shortness of Breath Stated Complaint: UPPER BACK PAIN Time Seen by Provider: 03/12/19 08:58 - History of Present Illness Initial Comments: 03/12/19 09:31 48f with pmh of asthma and Bipolar disorder with homicidal tendencies (non- active) presents to the ed with wheezing and lower back pain for 2 days. She states that she's on advair daily as well as another pump for asthma. Hasn' t had an attack in years but wheezes "frequently" She describe the lower back pain as achy, exacerbated by taking a deep breath. She took Advil last night which helped with the pain. Denies recent surgeries, cancer treatment, recent travel or immobilization or past history of PE or DVT. Left leg is chronically achy due to "nerve damage". Denies cough, difficulty breathing, denies recent trauma or physical exertion that triggered the back pain. Just woke up with it. Patient is a 1.5packs a day smoker. for decades, "used to be 2 packs" Past History - Past Medical History Allergies/Adverse Reactions: Allergies Allergy/AdvReac Type Severity Reaction Status Date / Time No Known Allergies Allergy Verified 03/12/19 08:33 Home Medications: Ambulatory Orders Fluticasone/Salmeterol [Advair 250-50 Diskus] 1 each IH BID 03/12/19 Asthma: Yes COPD: No Psychiatric Problems: Yes (DEPRESSION) - Surgical History Abdominal Surgery: Yes Cholecystectomy: Yes - Immunization History Immunization Up to Date: Yes - Suicide/Smoking/Psychosocial Hx Smoking History: Current every day smoker Have you smoked in the past 12 months: Yes Number of Cigarettes Smoked Daily: 20 Information on smoking cessation initiated: No 'Breaking Loose' booklet given: 01/09/18 Hx Alcohol Use: No Drug/Substance Use Hx: No Substance Use Type: None, Marijuana Review of Systems - Review of Systems Able to Perform ROS?: Yes Is the patient limited Icelandic proficient: No Constitutional: No: Symptoms Reported HEENTM: No: Symptoms Reported Respiratory: Yes: See HPI Cardiac (ROS): No: Symptoms Reported ABD/GI: No: Symptoms Reported : No: Symptoms Reported Musculoskeletal: Yes: See HPI Integumentary: No: Symptoms Reported Neurological: No: Symptoms reported All Other Systems: Reviewed and Negative *Physical Exam - Vital Signs Last Vital Signs Temp Pulse Resp BP Pulse Ox 98.1 F 78 16 126/87 99 03/12/19 08:33 03/12/19 08:33 03/12/19 08:33 03/12/19 08:33 03/12/19 08:33 - Physical Exam General Appearance: Yes: Nourished, Appropriately Dressed. No: Apparent Distress HEENT: positive: EOMI, ANGELICA, Normal ENT Inspection Respiratory/Chest: positive: Rhonchi, Wheezing. negative: Chest Tender, Lungs Clear, Normal Breath Sounds, Respiratory Distress Cardiovascular: positive: Regular Rhythm, Regular Rate, S1, S2 Gastrointestinal/Abdominal: positive: Normal Bowel Sounds, Flat, Soft. negative : Tender Musculoskeletal: positive: Other (bilateral paraspinal lumbar tenderness. ) ED Treatment Course - LABORATORY CBC & Chemistry Diagram: 03/12/19 10:15 03/12/19 10:15 - RADIOLOGY Radiology Studies Ordered: Category Date Time Status CHEST PA & LAT [RAD] Stat Radiology 03/12/19 08:55 Ordered Medical Decision Making - Medical Decision Making 03/12/19 10:22 48f with wheezing and lower back pain. The wheezing seems to be a common symptoms of the patient's asthma. Will treat with duonebx3. In addition the patient back pain seems like a reccurent visit symptom for tyhe patient. Patient;s pain was relieved by ibuprofen at home. However we briefly considered PE due to the pleuritic aspect of the pain (increased with deep breathing) however the patient's wells score for PE/DVT is currently zero, we have a very low suspicion for this etiology . Will reasssess after duoneb and obtain chest xray. 03/12/19 11:18 Labs positive for mild anemia. Will refer to follow up with pcp and discharge the patient.. chest xray negative. *DC/Admit/Observation/Transfer Diagnosis at time of Disposition: Lower back pain - Discharge Dispostion Disposition: HOME Condition at time of disposition: Improved Decision to Admit order: No - Referrals Referrals: [facility] [place] [Provider Group] - Patient Instructions Printed Discharge Instructions: Managing Chronic Low Back Pain Additional Instructions: Follow up with your primary care provider or one provided for you in those discharge instructions. Come back to the emergency department for any new, worsening or concerning symptom. - Post Discharge Activity
[2019-03-12 10:30] LABS: BASO % 1.2 % (0-2.0); EOS % 1.6 % (0-4.5); HEMATOCRIT 26.2 % (32.4-45.2); LYMPH % 29.8 % (8-40); MCHC 30.5 g/dl (32.0-36.0); MEAN CELL VOLUME 62.5 fl (80-96); MEAN PLT VOLUME 8.7 fl (7.5-11.1); MONO % 6.5 % (3.8-10.2); NEUT % 60.9 % (42.8-82.8); PLATELET COUNT 296 K/MM3 (134-434); RDW 18.3 % (11.6-15.6); WHITE BLOOD COUNT 7.2 K/mm3 (4.0-10.0)
[2019-03-12 10:35] LABS: MCH 19.1 pg (25.7-33.7)
--- NOTE | 2019-03-12 10:54 | PDOC ---
Documentation entered by Nydia Yoder SCRIBE, acting as scribe for Rohan Steinberg MD. Rohan Steinberg MD: This documentation has been prepared by the Beba alexander Nirvannie, SCRIBE, under my direction and personally reviewed by me in its entirety. I confirm that the documentation accurately reflects all work, treatment, procedures, and medical decision making performed by me. 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 She denies recent fevers, chills, headache or dizziness. She denies recent nausea, vomit, diarrhea or constipation. She denies recent dysuria, frequency, urgency or hematuria. She denies recent chest pain or shortness of breath. Allergies: NKDA Past surgical history: None reported. Social history: Smoker. - Physicial Exam PE: 03/12/19 10:14 Vitals: Triage vital signs reviewed General Appearance: No acute distress, well nourished, well developed Head: Atraumatic Chest Wall: Nontender Cardiac: Regular rate and rhythm, no murmurs, no rubs, no gallops Lungs: +Mild diffuse expiratory wheezing. Abdomen: Soft, nondistended, normal bowel sounds, nontender to palpation Genitourinary: Rectal: Exam deferred Extremities: Full range of motion to all extremities, no cyanosis, clubbing, or edema Back: Mild reproducible right sided back pain. 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 Plan is to: CBC CMP Chest X-ray Nebulizer treatments Toradol Reevaluation: Status post nebs and Toradol patient feels much better will follow up with her PCP this week history examination consistent with asthma exacerbation no indication for steroids at this time Findings, the need for follow-up and strict return instructions discussed with patient.
[2019-03-12 10:58] LABS: ALBUMIN 3.8 g/dl (3.4-5.0); ALK PHOS 71 U/L (45-117); ANION GAP 6 MMOL/L (8-16); BILIRUBIN,TOTAL 0.2 mg/dL (0.2-1); BLOOD UREA NITROGEN 12 mg/dL (7-18); CALCIUM 9.3 mg/dL (8.5-10.1); CHLORIDE 109 mmol/L (98-107); CO2 25 mmol/L (21-32); CREATININE 0.7 mg/dL (0.55-1.3); GLUCOSE,RANDOM 91 mg/dL (74-106); POTASSIUM 4.2 mmol/L (3.5-5.1); SGOT/AST 20 U/L (15-37); SGPT/ALT 18 U/L (13-61); SODIUM 140 mmol/L (136-145)
[2019-03-12 12:38] LABS: ANISOCYTOSIS 3+; MACROCYTOSIS 0; PLATELET ESTIMATE NORMAL; TEAR DROP CELLS 1+
--- NOTE | 2019-03-13 14:32 | EKG ---
Test Reason : Blood Pressure : / mmHG Vent. Rate : 069 BPM Atrial Rate : 069 BPM P-R Int : 146 ms QRS Dur : 086 ms QT Int : 382 ms P-R-T Axes : 060 047 041 degrees QTc Int : 409 ms NORMAL SINUS RHYTHM LEFT ATRIAL ENLARGEMENT INCOMPLETE RBBB BORDERLINE ECG Confirmed by MD SONNY, JOSÉ MIGUEL ([id number]) on 03/13/2019 2:31:41 PM Referred By: Confirmed By:JOSÉ MIGUEL DENNIS MD
== END 2019-03-12 11:55 | disposition home or self-care (01) ==
LOC: JER 08:31
PROC: 3E0F7GC Introduction of Other Therapeutic Substance into Respiratory Tract, Via Natural or Artificial Opening (ICD-10-PCS; principal; 2019-03-12)
DX: M54.5 Low back pain (principal); J45.909 Unspecified asthma, uncomplicated; F31.9 Bipolar disorder, unspecified
CPT/HCPCS: 36415; 71046-TC-FY; 80053; 84703; 85025; 93005; 93010; 94640; 99282-25

== ENCOUNTER 2019-11-19 07:33 | Emergency (ER) | payer OTHER ==
[2019-11-19 07:42] VITALS: BMI 24.0
--- NOTE | 2019-11-19 09:27 | PDOC ---
History of Present Illness - General Chief Complaint: Pain, Acute Stated Complaint: SORE THROAT,ABD PAIN Time Seen by Provider: 11/19/19 08:00 History Source: Patient Exam Limitations: No Limitations - History of Present Illness Initial Comments: 11/19/19 09:00 49-year-old female presents the emergency with complaints of sore throat, mild dry cough, along with suprapubic pressure worsened with urination x 2-3 days. Patient denies fever, chills, nausea, headache, nasal congestion, earache, difficulty swallowing. Patient states does smoke cigarettes on a daily basis but denies excessive coughing or difficulty breathing. Pt also with hx of fibroids Timing/Duration: intermittent Severity: mild, moderate Associated Symptoms: reports: cough, other (Sore throat) Past History - Travel Traveled outside of the country in the last 30 days: No Close contact w/someone who was outside of country & ill: No - Past Medical History Allergies/Adverse Reactions: Allergies Allergy/AdvReac Type Severity Reaction Status Date / Time No Known Allergies Allergy Verified 11/19/19 07:42 Home Medications: Ambulatory Orders Fluticasone/Salmeterol [Advair 250-50 Diskus] 1 each IH BID 03/12/19 Asthma: Yes COPD: No Psychiatric Problems: Yes (DEPRESSION) - Surgical History Abdominal Surgery: Yes Cholecystectomy: Yes - Immunization History Immunization Up to Date: Yes - Psycho Social/Smoking Cessation Hx Smoking History: Current every day smoker Have you smoked in the past 12 months: Yes Number of Cigarettes Smoked Daily: 20 Information on smoking cessation initiated: No 'Breaking Loose' booklet given: 01/09/18 Hx Alcohol Use: No Drug/Substance Use Hx: No Substance Use Type: None, Marijuana Patient Lives Alone: No Lives with/in: spouse/SO Review of Systems - Review of Systems Able to Perform ROS?: No Is the patient limited Turkmen proficient: No Constitutional: No: Symptoms Reported HEENTM: Yes: Throat Pain Respiratory: No: Symptoms reported Cardiac (ROS): No: Symptoms Reported ABD/GI: Yes: Abdominal cramping (Mid suprapubic) : No: Symptoms Reported Musculoskeletal: No: Symptoms Reported Integumentary: No: Symptoms Reported Neurological: No: Symptoms reported *Physical Exam - Vital Signs Last Vital Signs Temp Pulse Resp BP Pulse Ox 98.0 F 76 16 135/76 98 11/19/19 07:39 11/19/19 07:39 11/19/19 07:39 11/19/19 07:39 11/19/19 07:39 - Physical Exam General Appearance: Yes: Nourished, Appropriately Dressed. No: Apparent Distress HEENT: positive: Pharynx Normal. negative: Pale Conjunctivae Neck: positive: Normal Thyroid, Supple Respiratory/Chest: positive: Lungs Clear, Normal Breath Sounds. negative: Respiratory Distress, Accessory Muscle Use Cardiovascular: positive: Regular Rhythm, Regular Rate. negative: Murmur Gastrointestinal/Abdominal: positive: Normal Bowel Sounds, Soft, Tenderness ( Mid suprapubic). negative: Distended, Guarding, Rebound, Hernia Musculoskeletal: negative: CVA Tenderness Extremity: positive: Normal Inspection Integumentary: positive: Normal Color, Warm, Moist Neurologic: positive: Motor Strength 5/5 (Ambulatory) Medical Decision Making - Medical Decision Making 11/19/19 09:32 CC: sore throat x 2-3 days . also with suprapubic pressure with urination x 3 days Exam: vss, no erythema to tonsillar region, suprapubic tenderness Plan: ua, u cx, strep testing 11/19/19 10:34 Laboratory Tests 11/19/19 11/19/19 08:14 08:20 Urine Color Red Urine Appearance Bloody Ur Specific [place] No Result Required. Urine Protein No Result Required. Urine Glucose (UA) No Result Required. Urine Ketones No Result Required. Urine Blood No Result Required. Urine Nitrite No Result Required. Urine Bilirubin No Result Required. Urine Urobilinogen No Result Required. Ur Leukocyte Esterase No Result Required. Group A Strep Rapid Negative Pt currently menstruating ( Day 2). 11/19/19 10:35 Pt ordered for repeat ua , pelvic ultrasound, And Percocet for pain 11/19/19 12:39 Laboratory Tests 11/19/19 11:35 Ur Specific [place] 1.006 L Urine Blood 2+ H Urine Nitrite Negative Urine Bilirubin Negative Ur Leukocyte Esterase Negative Urine WBC (Auto) 1 Urine RBC (Auto) 109 Ultrasound shows prominent fibroids along with thickened endometrium measuring 12 cm with endometrial fluid. Patient states relief with Percocet. Will discharge patient home with Percocet along with referral to REFRACTORY MANAGER/PMD at [facility]. Discharge - Discharge Information Problems reviewed: Yes Clinical Impression/Diagnosis: Fibroids, intramural Condition: Improved Disposition: HOME - Follow up/Referral Referrals: Concepción Baumann [Primary Care Provider] - - Patient Discharge Instructions Patient Printed Discharge Instructions: DI for Uterine Fibroids Additional Instructions: Please take Percocet as prescribed but do not operate any heavy machinery while taking this including a vehicle. Drink plenty of fluids. Follow-up with [facility] as discussed - Post Discharge Activity
[2019-11-19 09:49] LABS: URINE APPEARANCE BLOODY; URINE COLOR RED
[2019-11-19 12:32] LABS: EPI CELLS 0.3 /HPF (0-5/HPF); HYALINE CASTS 0 /lpf (0-8); PH,URINE 5.5 (5.0-8.0); URINE APPEARANCE CLEAR; URINE BACTERIA 4.8 /hpf (NEGATIVE); URINE BILIRUBIN NEGATIVE (NEGATIVE); URINE COLOR YELLOW; URINE GLUCOSE (UA) NEGATIVE (NEGATIVE); URINE KETONE NEGATIVE (NEGATIVE); URINE LEUK ESTERASE NEGATIVE (NEGATIVE); URINE NITRITE NEGATIVE (NEGATIVE); URINE PROTEIN NEGATIVE (NEGATIVE); URINE RBC 109 /hpf (0-4); URINE UROBILINOGEN 0.2 mg/dL (0.2-1.0); URINE WBC 1 /hpf (0-5)
[2019-11-19 12:50] VITALS: BP 115/78; PULSE 80; TEMP 98.1
== END 2019-11-19 13:00 | disposition home or self-care (01) ==
LOC: JER 07:33
DX: D25.1 Intramural leiomyoma of uterus (principal)
CPT/HCPCS: 76856-TC; 81003; 87070; 87086; 87880; 99283-25

== ENCOUNTER 2022-02-16 04:53 | Day surgery (SDC) | payer OTHER ==
[2022-02-11 16:42] VITALS: BMI 24.7
[2022-02-16 11:18] VITALS: TEMP 97.2
[2022-02-16 12:00] VITALS: BP 145/80; PULSE 65
== END 2022-02-16 12:00 | disposition home or self-care (01) ==
LOC: JASU-ENDO 04:53
PROVIDERS: ATTEND Internal Medicine Gastroenterology
PROC: 0DBN8ZX Excision of Sigmoid Colon, Via Natural or Artificial Opening Endoscopic, Diagnostic (ICD-10-PCS; 2022-02-16)
PROC: 0DBM8ZX Excision of Descending Colon, Via Natural or Artificial Opening Endoscopic, Diagnostic (ICD-10-PCS; principal; 2022-02-16 10:00)
DX: Z12.11 Encounter for screening for malignant neoplasm of colon (principal); D12.4 Benign neoplasm of descending colon; D12.7 Benign neoplasm of rectosigmoid junction; D12.5 Benign neoplasm of sigmoid colon; K64.8 Other hemorrhoids; K63.89 Other specified diseases of intestine
CPT/HCPCS: 81025; 88305-TC

== ENCOUNTER 2022-02-23 04:38 | Day surgery (SDC) | payer OTHER ==
[2022-02-22 09:57] VITALS: BMI 26.2
[~2022-02-23 04:38] MED LIST: BUPIVACAINE HCL/PF 0.75% 10 ML VIAL NR ONE; DEXAMETHASONE SOD PHOSPHATE 10 MG/1 ML VIAL IVPUSH ONE; IOHEXOL 180 MG/1 ML ML IJ ONE; LIDOCAINE HCL 1% PRESERVATIVE FREE - 30ML VIAL IJ ONE
[2022-02-23] MEDS ORDERED: DEXAMETHASONE SOD PHOSPHATE 10 MG/1 ML VIAL ONE (07:42)
[2022-02-23] MEDS ORDERED: LIDOCAINE HCL/PF 1% SDV 5ML VIAL ONE (07:42)
[2022-02-23] MEDS ORDERED: LIDOCAINE HCL 1% PRESERVATIVE FREE - 30ML VIAL IJ ONE ×2 (11:12)
[2022-02-23] MEDS ORDERED: IOHEXOL 180 MG/1 ML ML IJ ONE (11:14)
[2022-02-23] MEDS ORDERED: DEXAMETHASONE SOD PHOSPHATE 10 MG/1 ML VIAL IVPUSH ONE (11:22)
[2022-02-23 12:33] VITALS: BP 135/77; PULSE 75; TEMP 97.8
== END 2022-02-23 11:42 | disposition home or self-care (01) ==
LOC: JASU-SURG 04:38
PROVIDERS: ATTEND Pain Medicine Pain Medicine
PROC: 3E0R33Z Introduction of Anti-inflammatory into Spinal Canal, Percutaneous Approach (ICD-10-PCS; 2022-02-23)
PROC: 3E0R3BZ Introduction of Anesthetic Agent into Spinal Canal, Percutaneous Approach (ICD-10-PCS; principal; 2022-02-23 10:30)
DX: M54.16 Radiculopathy, lumbar region (principal)
CPT/HCPCS: 76000-TC-FY; 81025; J1100

== ENCOUNTER 2024-08-22 21:25 | Emergency (ER) | payer OTHER ==
[2024-08-22 21:48] VITALS: BP 125/95; PULSE 88; RESP 16; TEMP 98.1; BMI 22.8
[2024-08-22] MEDS ORDERED: KETOROLAC TROMETHAMINE 30 MG/1 ML VIAL ONE (22:39)
[2024-08-22] MEDS: KETOROLAC TROMETHAMINE 30 MG/1 ML VIAL IM ONE (22:41)
== END 2024-08-22 23:03 | disposition home or self-care (01) ==
LOC: JERFT 21:25
PROC: 3E0233Z Introduction of Anti-inflammatory into Muscle, Percutaneous Approach (ICD-10-PCS; principal; 2024-08-22)
DX: M25.512 Pain in left shoulder (principal)
CPT/HCPCS: 73030-TC-LT-FY; 99284-25